=== PATIENT | female | born 1955 | race African-American/Black ===

== ENCOUNTER 2020-11-18 03:13 | Emergency (ER) | payer OTHER ==
[~2020-11-18] VITALS: Ht 165.1 cm; Wt 88.6 kg
[~2020-11-18 03:13] MED LIST: CALC1TAB15 PO; CHOL2000 PO
[2020-11-18] MEDS ORDERED: ACETAMINOPHEN 500 MG TABLET PO ONE (03:45)
[2020-11-18 05:50] VITALS: BP 140/78
== END 2020-11-18 06:19 | disposition home or self-care (01) ==
LOC: EMS 03:24
DX: M23.301 Other meniscus derangements, unspecified lateral meniscus, left knee (principal); Z88.1 Allergy status to other antibiotic agents; Z88.8 Allergy status to other drugs, medicaments and biological substances
CPT/HCPCS: 29505; 99283